=== PATIENT | female | born 1960 | race Caucasian/White ===

== ENCOUNTER 2022-05-22 06:59 | Inpatient (IN) ==
[~2022-05-22 06:59] MED LIST: HEPARIN/NACL 0.9% 2 UNITS/ML 1,000 UNIT/500 ML BAG IV ONE; LIDOCAINE 2% 5 ML VIAL ONE; MIDAZOLAM 2 MG/2 ML VIAL ONE; ONDANSETRON 4 MG/2 ML VIAL ONE; PHENYLEPHRINE DRIP 20 MG/250 ML PREMIX IV ONE; ROCURONIUM 50 MG/5 ML VIAL IV ONE; SEVOFLURANE 1 UNIT/15 MINUTE INH ONE; fentaNYL 250 MCG/5 ML VIAL ONE; propofoL 200 MG/20 ML VIAL IV ONE
[2022-05-22] MEDS ORDERED: SCOPOLAMINE 1.5 MG PATCH TRANSDERM ONE (08:21)
[2022-05-22] MEDS ORDERED: ePHEDrine 50 MG/ML VIAL ONE (08:50)
[2022-05-22] MEDS ORDERED: DEXAMETHASONE 4 MG/1 ML VIAL ONE (09:16)
[2022-05-22] MEDS ORDERED: TISSUE ADHESIVE 1 EACH APPLICATOR TOP ONE (09:32)
[2022-05-22] MEDS ORDERED: NEOSTIGMINE 10 MG/10 ML VIAL ONE (09:33)
[2022-05-22] MEDS ORDERED: GLYCOPYRROLATE 0.4 MG/2 ML VIAL ONE (09:33)
[2022-05-22] MEDS ORDERED: LACTATED RINGERS 1,000 ML IV ONE (09:46)
[2022-05-22 10:22] LABS: Bilirubin,Urine Negative (Negative); Blood, Urine Negative (Negative); Glucose,Urine (UA) Negative (Negative); Hyaline Casts,Urine 193 /LPF (0-3); Ketones,Urine 5 mg/dL (Negative); Mucus,Urine Many /LPF (Occasional); Nitrite,Urine Negative (Negative); Protein,Urine 30 mg/dL (Negative); RBC,Urine 2 /HPF (0-4); Squamous Epithelial Cell,Urine Occasional /HPF (0-10); Urine Appearance Slightly Hazy (Clear); Urine Color Amber (Yellow); Urine Specific Gravity 1.023 (1.001-1.035)
[2022-05-22] MEDS: LACTATED RINGERS 1,000 ML IV SCH (12:39)
[2022-05-22] MEDS: fentaNYL 2 MCG/ROPIV 0.2% EPID 100 ML EPIDURAL SCH (12:39)
[2022-05-22] MEDS: DEXT 5% NACL 0.45% KCL 10 MEQ 10 MEQ/1,000 ML BAG IV SCH ×2 (12:40→23:09)
[2022-05-22] MEDS ORDERED: buprenorphine HCL 0.3 MG/ML VIAL ONE (18:24)
[2022-05-22] MEDS ORDERED: LIDOCAINE 1% 5 ML VIAL ONE (18:25)
[2022-05-22] MEDS: METOPROLOL TARTRATE 50 MG TABLET PO SCH (20:56)
[2022-05-23] MEDS: fentaNYL 2 MCG/ROPIV 0.2% EPID 100 ML EPIDURAL SCH ×3 (00:40→21:51)
[2022-05-23 05:39] LABS: Basophils % 0.1 % (0.0-0.8); Hemoglobin 12.5 GM/DL (12.0-16.0); Immature Granulocytes % 0.9 %; Immature Granulocytes Absolute 0.15 #; Lymphocytes # 1.1 10*3/uL (1.4-4.0); Lymphocytes % 6.1 % (21.3-54.2); Mean Corpuscular HGB Conc 33.8 GM/DL (32-36); Mean Corpuscular Volume 95.6 FL (87-102); Mean Platelet Volume 11.9 FL (9.6-12.0); Monocytes # 1.1 10*3/uL (0.11-0.8); Monocytes % 6.2 % (1.7-12.7); Neutrophils % 86.7 % (38.7-73.9); Platelet Count 214 T/CUMM (130-400); Red Blood Count 3.87 MC/CUMM (3.8-5.5); Red Cell Distribution Width 13.3 % (9.3-17.3); White Blood Count 17.6 T/CUMM (4-12)
[2022-05-23 05:57] LABS: Osmolality,Calculated 281.4 MOS/KG (273-304); Potassium 3.7 MMOL/L (3.5-5.1)
[2022-05-23] MEDS: ALBUTEROL/IPRATROPIUM 3 ML NEB RESP TX PRN ×2 (06:15→12:25)
[2022-05-23] MEDS: amLODIPine 10 MG TABLET PO SCH (08:08)
[2022-05-23] MEDS: ESCITALOPRAM 10 MG TABLET PO SCH (08:08)
[2022-05-23] MEDS: hydroCHLOROthiazide 25 MG TABLET PO SCH (08:08)
[2022-05-23] MEDS: METOPROLOL TARTRATE 50 MG TABLET PO SCH ×2 (08:08→21:00)
[2022-05-23] MEDS: DEXT 5% NACL 0.45% KCL 10 MEQ 10 MEQ/1,000 ML BAG IV SCH (09:49)
[2022-05-23] MEDS ORDERED: KETOROLAC 30 MG/1 ML VIAL IV ONE (16:05)
[2022-05-23] MEDS ORDERED: HYDROmorphone 1 MG/1 ML SYRINGE IV ONE ×2 (16:06→18:19)
[2022-05-23] MEDS: KETOROLAC 10 MG TABLET PO SCH (20:59)
[2022-05-24] MEDS: KETOROLAC 10 MG TABLET PO SCH ×4 (00:20→18:06)
[2022-05-24] MEDS: fentaNYL 2 MCG/ROPIV 0.2% EPID 100 ML EPIDURAL SCH ×2 (01:20→10:34)
[2022-05-24] MEDS: amLODIPine 10 MG TABLET PO SCH (08:32)
[2022-05-24] MEDS: ESCITALOPRAM 10 MG TABLET PO SCH (08:32)
[2022-05-24] MEDS: hydroCHLOROthiazide 25 MG TABLET PO SCH (08:32)
[2022-05-24] MEDS: METOPROLOL TARTRATE 50 MG TABLET PO SCH ×2 (08:33→20:53)
[2022-05-24] MEDS ORDERED: HYDROmorphone 1 MG/1 ML SYRINGE IV PRN (09:09)
[2022-05-24] MEDS: ALBUTEROL/IPRATROPIUM 3 ML NEB RESP TX PRN ×2 (09:36→19:15)
[2022-05-24] MEDS ORDERED: buprenorphine HCL 0.3 MG/ML VIAL ONE (10:01)
[2022-05-24] MEDS: HYDROmorphone 1 MG/1 ML SYRINGE IV PRN ×2 (13:40→19:11)
[2022-05-24] MEDS: LACTATED RINGERS 1,000 ML IV SCH (19:55)
[2022-05-25] MEDS: KETOROLAC 10 MG TABLET PO SCH ×4 (00:04→18:34)
[2022-05-25] MEDS: HYDROmorphone 1 MG/1 ML SYRINGE IV PRN ×5 (00:08→21:09)
[2022-05-25] MEDS: RIVAROXABAN 10 MG TABLET PO SCH (09:11)
[2022-05-25] MEDS: hydroCHLOROthiazide 25 MG TABLET PO SCH (09:11)
[2022-05-25] MEDS: amLODIPine 10 MG TABLET PO SCH (09:12)
[2022-05-25] MEDS: METOPROLOL TARTRATE 50 MG TABLET PO SCH ×2 (09:12→21:06)
[2022-05-25] MEDS: ESCITALOPRAM 10 MG TABLET PO SCH (09:12)
[2022-05-26] MEDS: KETOROLAC 10 MG TABLET PO SCH ×4 (00:32→17:28)
[2022-05-26] MEDS: HYDROmorphone 1 MG/1 ML SYRINGE IV PRN ×4 (07:56→20:29)
[2022-05-26] MEDS: hydroCHLOROthiazide 25 MG TABLET PO SCH (08:47)
[2022-05-26] MEDS: ESCITALOPRAM 10 MG TABLET PO SCH (08:47)
[2022-05-26] MEDS: amLODIPine 10 MG TABLET PO SCH (08:47)
[2022-05-26] MEDS: METOPROLOL TARTRATE 50 MG TABLET PO SCH ×2 (08:48→20:33)
[2022-05-26] MEDS: RIVAROXABAN 10 MG TABLET PO SCH (08:48)
[2022-05-26] MEDS ORDERED: ENOXAPARIN 40 MG/0.4 ML SYRINGE SUBCUT SCH (09:00)
[2022-05-26] MEDS: ALBUTEROL/IPRATROPIUM 3 ML NEB RESP TX PRN (17:50)
[2022-05-27] MEDS: ALBUTEROL/IPRATROPIUM 3 ML NEB RESP TX PRN ×2 (00:06→20:44)
[2022-05-27] MEDS: KETOROLAC 10 MG TABLET PO SCH ×4 (00:23→17:39)
[2022-05-27] MEDS: HYDROmorphone 1 MG/1 ML SYRINGE IV PRN ×3 (00:31→20:19)
[2022-05-27] MEDS: METOPROLOL TARTRATE 50 MG TABLET PO SCH ×2 (09:03→20:20)
[2022-05-27] MEDS: RIVAROXABAN 10 MG TABLET PO SCH (09:03)
[2022-05-27] MEDS: amLODIPine 10 MG TABLET PO SCH (09:03)
[2022-05-27] MEDS: ESCITALOPRAM 10 MG TABLET PO SCH (09:04)
[2022-05-27] MEDS: hydroCHLOROthiazide 25 MG TABLET PO SCH (09:04)
[2022-05-27] MEDS: oxyCODONE/ACETAMINOPHEN 5-325 MG TABLET PO PRN ×2 (11:54→17:41)
[2022-05-28] MEDS: KETOROLAC 10 MG TABLET PO SCH ×4 (00:25→17:22)
[2022-05-28] MEDS: amLODIPine 10 MG TABLET PO SCH (08:12)
[2022-05-28] MEDS: hydroCHLOROthiazide 25 MG TABLET PO SCH (08:12)
[2022-05-28] MEDS: oxyCODONE/ACETAMINOPHEN 5-325 MG TABLET PO PRN ×3 (08:13→23:52)
[2022-05-28] MEDS: ESCITALOPRAM 10 MG TABLET PO SCH (08:13)
[2022-05-28] MEDS: RIVAROXABAN 10 MG TABLET PO SCH (08:13)
[2022-05-28] MEDS: METOPROLOL TARTRATE 50 MG TABLET PO SCH ×2 (08:13→20:58)
[2022-05-29] MEDS: ALBUTEROL/IPRATROPIUM 3 ML NEB RESP TX PRN (07:40)
[2022-05-29] MEDS: METOPROLOL TARTRATE 50 MG TABLET PO SCH ×2 (08:27→20:58)
[2022-05-29] MEDS: amLODIPine 10 MG TABLET PO SCH (08:28)
[2022-05-29] MEDS: ESCITALOPRAM 10 MG TABLET PO SCH (08:28)
[2022-05-29] MEDS: oxyCODONE/ACETAMINOPHEN 5-325 MG TABLET PO PRN ×3 (08:29→20:58)
[2022-05-29] MEDS: RIVAROXABAN 10 MG TABLET PO SCH (08:30)
[2022-05-29] MEDS: hydroCHLOROthiazide 25 MG TABLET PO SCH (08:30)
[2022-05-30] MEDS: oxyCODONE/ACETAMINOPHEN 5-325 MG TABLET PO PRN ×3 (03:48→14:25)
[2022-05-30] MEDS: hydroCHLOROthiazide 25 MG TABLET PO SCH (08:43)
[2022-05-30] MEDS: ESCITALOPRAM 10 MG TABLET PO SCH (08:43)
[2022-05-30] MEDS: amLODIPine 10 MG TABLET PO SCH (08:43)
[2022-05-30] MEDS: METOPROLOL TARTRATE 50 MG TABLET PO SCH (08:43)
[2022-05-30] MEDS: RIVAROXABAN 10 MG TABLET PO SCH (08:43)
[2022-05-30 12:43] VITALS: BP 128/64
== END 2022-05-30 16:42 | disposition home or self-care (01) | DRG 164 ==
LOC: N.SDSINP 06:59 → N.ICU 11:02 → N.5E 05-23 17:31
PROVIDERS: ADMIT Surgery; ATTEND Surgery